=== PATIENT | female | born 1985 | race Caucasian/White ===

== ENCOUNTER → 2023-08-29 13:53 | Outpatient (REF) | payer OTHER, SELFPAY | LOC: HWRAD 13:53 | PROVIDERS: ATTENDING PHYSICIAN Student in an Organized Health Care Education/Training Program; FAMILY PHYSICIAN Nurse Practitioner | DX: Z34.80 Encounter for supervision of other normal pregnancy, unspecified trimester (principal) | CPT/HCPCS: 76801 ==